=== PATIENT | female | born 1980 | race Caucasian/White ===

== ENCOUNTER 2017-09-25 13:50 | Inpatient (IN) | payer OTHER ==
[~2017-09-25] VITALS: Ht 162.6 cm; Wt 78.5 kg
[2017-09-25 14:34] VITALS: BP 115/74
[2017-09-25] MEDS ORDERED: OXYTOCIN 30 UNITS/LACT RINGERS 500 ML IV ONE (14:42)
[2017-09-25] MEDS ORDERED: RINGERS SOLUTION,LACTATED 1,000 ML IV PRN (14:42)
[2017-09-25] MEDS ORDERED: METHYLERGONOVINE MALEATE 0.2 MG/ML VIAL IM PRN (14:45)
[2017-09-25] MEDS ORDERED: MISOPROSTOL 25 MCG TABLET VG ONE (14:45)
[2017-09-25] MEDS ORDERED: METOCLOPRAMIDE HCL 5 MG/ML 2 ML VIAL IVP PRN (14:45)
[2017-09-25] MEDS ORDERED: LIDOCAINE HCL/PF 1% 30 ML VIAL INJ PRN (14:45)
[2017-09-25] MEDS ORDERED: FentaNYL CITRATE-PF 100 MCG/2 ML VIAL IVP PRN (14:45)
[2017-09-25] MEDS ORDERED: CITRIC ACID/SODIUM CITRATE 30 ML SOLUTION UDCUP PO PRN (14:45)
[2017-09-25] MEDS: RINGERS SOLUTION,LACTATED 1,000 ML IV SCH ×3 (15:05→22:33)
[2017-09-25 15:46] LABS: BASOPHILS % (AUTO) 0.3 % (0.0-2.0); EOSINOPHILS % (AUTO) 0.5 % (1.0-6.0); HEMATOCRIT 28.7 % (36-46); HEMOGLOBIN 9.4 g/dL (12.0-16.0); LYMPHOCYTES # (AUTO) 1.6 K/uL (1.0-4.8); LYMPHOCYTES % (AUTO) 12.9 % (22.0-44.0); MEAN CORPUSCULAR HEMOGLOBIN 25.9 pg (26.0-34.0); MEAN CORPUSCULAR HGB CONC 32.9 G/dL (31.0-37.0); MEAN CORPUSCULAR VOLUME 79 fL (80-100); MONOCYTES # (AUTO) 0.9 K/uL (0.1-1.0); MONOCYTES % (AUTO) 7.2 % (2.0-9.0); NEUTROPHILS # (AUTO) 9.8 K/uL (1.8-7.7); NEUTROPHILS % (AUTO) 79.1 % (40.0-70.0); PLATELET COUNT (AUTO)-OB 231 K/uL (150-450); RED BLOOD CELL COUNT(AUTO) 3.64 MIL/uL (4.00-5.20); RED CELL DISTRIBUTION WIDTH 15.9 % (11.5-14.5)
[2017-09-25 16:32] LABS: GLUCOMETER DEV NAME(LOC) 4S 8; GLUCOSE,POINT OF CARE 102 MG/DL (70-110)
[2017-09-25] MEDS ORDERED: OXYGEN THERAPY IH SCH (20:00)
[2017-09-25] MEDS ORDERED: OXYTOCIN 30 UNITS/LACT RINGERS 500 ML IV PRN (20:05)
[2017-09-25] MEDS ORDERED: MISOPROSTOL 25 MCG TABLET VG SCH (20:15)
[2017-09-25] MEDS ORDERED: BUPIVACAINE HCL/PF 0.25% 10 ML VIAL ONE (21:27)
[2017-09-25] MEDS ORDERED: LIDOCAINE HCL/PF 2% 5 ML VIAL ONE (21:27)
[2017-09-25] MEDS ORDERED: ROPIVACAINE HCL 0.2% 100 ML ED ONE (21:28)
[2017-09-25] MEDS ORDERED: ROPIVACAINE HCL 0.2% 100 ML ED PRN (22:10)
[2017-09-25] MEDS ORDERED: PROMETHAZINE HCL 12.5 MG in SODIUM CHLORIDE 0.9% 50 ML IV PRN (22:15)
[2017-09-25] MEDS ORDERED: DiphenhydrAMINE HCL 50 MG/ML VIAL IVP PRN (22:15)
[2017-09-25] MEDS ORDERED: ONDANSETRON HCL 4 MG/2 ML VIAL IVP PRN (22:15)
[2017-09-25] MEDS ORDERED: NALBUPHINE HCL 10 MG/ML VIAL IVP PRN ×2 (22:15)
[2017-09-26 01:37] LABS: BASOPHILS % (AUTO) 0.7 % (0.0-2.0); EOSINOPHILS % (AUTO) 0.3 % (1.0-6.0); HEMATOCRIT 27.7 % (36-46); LYMPHOCYTES # (AUTO) 1.9 K/uL (1.0-4.8); LYMPHOCYTES % (AUTO) 12.6 % (22.0-44.0); MEAN CORPUSCULAR HEMOGLOBIN 25.7 pg (26.0-34.0); MEAN CORPUSCULAR HGB CONC 32.7 G/dL (31.0-37.0); MEAN CORPUSCULAR VOLUME 79 fL (80-100); MONOCYTES # (AUTO) 0.7 K/uL (0.1-1.0); MONOCYTES % (AUTO) 4.9 % (2.0-9.0); NEUTROPHILS # (AUTO) 12.1 K/uL (1.8-7.7); NEUTROPHILS % (AUTO) 81.5 % (40.0-70.0); PLATELET COUNT (AUTO)-OB 197 K/uL (150-450); RED BLOOD CELL COUNT(AUTO) 3.52 MIL/uL (4.00-5.20); RED CELL DISTRIBUTION WIDTH 15.9 % (11.5-14.5)
[2017-09-26] MEDS: RINGERS SOLUTION,LACTATED 1,000 ML IV SCH (03:02)
[2017-09-26] MEDS ORDERED: BUPIVACAINE HCL/PF 0.25% 10 ML VIAL ONE (06:09)
[2017-09-26] MEDS ORDERED: LIDOCAINE HCL/PF 2% 5 ML VIAL ONE ×2 (06:09→07:53)
[2017-09-26] MEDS ORDERED: FentaNYL CITRATE-PF 100 MCG/2 ML VIAL ONE (06:09)
[2017-09-26] MEDS ORDERED: ROPIVACAINE HCL 0.2% 100 ML ED PRN (06:18)
[2017-09-26] MEDS ORDERED: ROPIVACAINE HCL 0.2% 100 ML ED ONE (06:51)
[2017-09-26] MEDS ORDERED: GENTAMICIN 80 MG/NACL ISO-OSM 100 ML IV ONE (09:35)
[2017-09-26] MEDS ORDERED: GENTAMICIN 80 MG/NACL ISO-OSM 50 ML IV ONE (09:45)
[2017-09-26] MEDS ORDERED: CeFAZolin 2 GM/DEXTROSE 50 ML IV ONE (10:30)
[2017-09-26] MEDS ORDERED: BENZOCAINE 20%/MENTHOL 56 GM SPRAY CANISTER TP PRN (11:15)
[2017-09-26] MEDS ORDERED: LANOLIN 7 GM OINTMENT TP PRN (11:15)
[2017-09-26] MEDS ORDERED: GLYCERIN/WITCH HAZEL LEAF 40 PADS JAR TP PRN (11:15)
[2017-09-26] MEDS ORDERED: ACETAMINOPHEN/CODEINE 300-30 MG TABLET PO PRN (11:15)
[2017-09-26] MEDS ORDERED: RINGERS SOLUTION,LACTATED 1,000 ML IV ONE ×3 (11:17→14:03)
[2017-09-26] MEDS ORDERED: SENNA/DOCUSATE SODIUM 187-50 MG TABLET PO ONE (12:00)
[2017-09-26] MEDS: IBUPROFEN 800 MG TABLET PO SCH ×2 (13:14→19:48)
[2017-09-26 14:15] LABS: MEAN CORPUSCULAR HEMOGLOBIN 25.9 pg (26.0-34.0); MEAN CORPUSCULAR HGB CONC 32.7 G/dL (31.0-37.0); MEAN CORPUSCULAR VOLUME 79 fL (80-100); PLATELET COUNT (AUTO)-OB 177 K/uL (150-450); RED CELL DISTRIBUTION WIDTH 16.1 % (11.5-14.5)
[2017-09-26 14:19] LABS: HEMATOCRIT 17.4 % (36-46)
[2017-09-26 14:20] LABS: HEMOGLOBIN 5.7 g/dL (12.0-16.0)
[2017-09-26] MEDS ORDERED: SOD FERRIC GLUC COMPLX/SUCROSE 125 MG in SODIUM CHLORIDE 0.9% 100 ML IV ONE (14:30)
[2017-09-26 16:12] LABS: BAND NEUTROPHILS % (MANUAL) 4 % (1-5); LYMPHOCYTES % (MANUAL) 3 % (22-44); MONOCYTES % (MANUAL) 3 % (2-9); SEGMENTED NEUTROPHILS % 90 % (40-70)
[2017-09-26 16:13] LABS: PLATELET MORPHOLOGY COMMENT NORMAL
[2017-09-26] MEDS: MAGNESIUM HYDROXIDE SUSPENSION 30 ML UDCUP PO SCH (19:48)
[2017-09-26] MEDS: ACETAMINOPHEN/CODEINE 300-30 MG TABLET PO PRN (23:42)
[2017-09-27] MEDS: IBUPROFEN 800 MG TABLET PO SCH ×2 (03:13→09:02)
[2017-09-27] MEDS: ACETAMINOPHEN/CODEINE 300-30 MG TABLET PO PRN ×3 (05:54→12:21)
[2017-09-27 06:21] LABS: BASOPHILS % (AUTO) 0.1 % (0.0-2.0); EOSINOPHILS % (AUTO) 0.3 % (1.0-6.0); LYMPHOCYTES # (AUTO) 1.3 K/uL (1.0-4.8); LYMPHOCYTES % (AUTO) 6.3 % (22.0-44.0); MEAN CORPUSCULAR HEMOGLOBIN 25.7 pg (26.0-34.0); MEAN CORPUSCULAR HGB CONC 32.5 G/dL (31.0-37.0); MEAN CORPUSCULAR VOLUME 79 fL (80-100); MONOCYTES # (AUTO) 1.2 K/uL (0.1-1.0); MONOCYTES % (AUTO) 6.2 % (2.0-9.0); NEUTROPHILS # (AUTO) 17.3 K/uL (1.8-7.7); PLATELET COUNT (AUTO)-OB 160 K/uL (150-450); RED BLOOD CELL COUNT(AUTO) 1.76 MIL/uL (4.00-5.20); RED CELL DISTRIBUTION WIDTH 15.8 % (11.5-14.5)
[2017-09-27 07:21] LABS: HEMOGLOBIN 4.5 g/dL (12.0-16.0)
[2017-09-27 07:22] LABS: HEMATOCRIT 13.9 % (36-46); NEUTROPHILS % (AUTO) 87.1 % (40.0-70.0)
[2017-09-27] MEDS ORDERED: SOD FERRIC GLUC COMPLX/SUCROSE 125 MG in SODIUM CHLORIDE 0.9% 100 ML IV ONE (08:00)
[2017-09-27] MEDS: MAGNESIUM HYDROXIDE SUSPENSION 30 ML UDCUP PO SCH (10:03)
[2017-09-27] MEDS ORDERED: IBUP-2071 PO (10:34)
[2017-09-27] MEDS ORDERED: FERR-89 PO (10:34)
[2017-09-27] MEDS ORDERED: FOLI1 PO (10:35)
[2017-09-27] MEDS ORDERED: SENNA/DOCUSATE SODIUM 187-50 MG TABLET PO ONE (12:15)
== END 2017-09-27 13:00 | disposition home or self-care (01) | DRG 775 ==
LOC: OBSVTOIN 13:50 → 4S 13:50
PROVIDERS: ADMIT Obstetrics & Gynecology; ATTEND Obstetrics & Gynecology
PROC: 10D07Z6 Extraction of Products of Conception, Vacuum, Via Natural or Artificial Opening (ICD-10-PCS; principal; 2017-09-26)
PROC: 0DQR0ZZ Repair Anal Sphincter, Open Approach (ICD-10-PCS; 2017-09-26)
PROC: 0W8NXZZ Division of Female Perineum, External Approach (ICD-10-PCS; 2017-09-26)
PROC: 3E0R3BZ Introduction of Anesthetic Agent into Spinal Canal, Percutaneous Approach (ICD-10-PCS; 2017-09-26)
PROC: 00HU33Z Insertion of Infusion Device into Spinal Canal, Percutaneous Approach (ICD-10-PCS; 2017-09-26)
DX: O99.02 Anemia complicating childbirth (principal); O70.20 Third degree perineal laceration during delivery, unspecified; Z37.0 Single live birth; Z3A.40 40 weeks gestation of pregnancy
CPT/HCPCS: 82962; 86850; 86900; 86901; 86920; J0690; J1580; J2405; J2590; J2795; J2916; J3010; J3490; J7050; J7120